=== PATIENT | male | born 1950 | race African-American/Black ===

== ENCOUNTER 2017-04-05 12:58 | Emergency (ER) | payer MEDICARE ==
[2017-04-05] MEDS ORDERED: IV NORMAL SALINE 1000ML BAG 1,000 ML IV SCH (13:06)
[2017-04-05 13:23] LABS: POTASSIUM ISTAT 2.9 mmol/L (3.5-5.0)
[2017-04-05] MEDS ORDERED: IOHEXOL 300 MG/ML 100ML VIAL. IV ONE (13:30)
[2017-04-05] MEDS ORDERED: IV NORMAL SALINE 50ML 50 ML IV ONE (13:30)
[2017-04-05] MEDS ORDERED: ALTEPLASE 5.7 MG IV ONE (13:30)
[2017-04-05] MEDS ORDERED: CONTRAST GIVEN MC PRN (13:30)
[2017-04-05] MEDS ORDERED: ALTEPLASE IV SCH (13:30)
[2017-04-05 13:33] LABS: BASO % 1 % (0-3); EOS % 1 % (0-3); HEMATOCRIT 51.6 % (39.0-53.0); HEMOGLOBIN 16.7 g/dL (13.0-17.5); LYMPH # 1.8 x10^3/uL (1.0-4.8); LYMPH % 28 % (24-48); MEAN CORPUSCULAR HEMOGLOBIN 29 pg (25-35); MEAN CORPUSCULAR HGB CONC 32 g/dL (31-37); MEAN CORPUSCULAR VOLUME 91 fL (79-100); MONO % 9 % (0-9); NEUT % 62 % (31-73); PLATELET COUNT 260 x10^3/uL (140-400); RED CELL DISTRIBUTION WIDTH 13.7 % (11.5-14.5); WHITE BLOOD COUNT 6.6 x10^3/uL (4.0-11.0)
[2017-04-05 13:34] LABS: CALCIUM 9.8 mg/dL (8.5-10.1); CREATININE 1.1 mg/dL (0.7-1.3); GFR 66.6; POTASSIUM 3.1 mmol/L (3.5-5.1)
[2017-04-05 13:39] LABS: ALBUMIN 4.3 g/dL (3.4-5.0); DIRECT BILIRUBIN 0.2 mg/dL (0.0-0.2); TOTAL BILIRUBIN 0.9 mg/dL (0.2-1.0); TOTAL PROTEIN 7.8 g/dL (6.4-8.2)
--- NOTE | 2017-04-05 13:40 | RAD ---
CT of the head without contrast History:FOCAL NEURO, CODE STROKE. Technique: Standard noncontrast images are obtained. Exposure: One or more of the following individualized dose reduction techniques were utilized for this examination: 1. Automated exposure control 2. Adjustment of the mA and/or kV according to patient size 3. Use of iterative reconstruction technique. Comparison: None Findings: There is low parenchymal density in the right frontal, temporal and parietal lobes, and occipital lobe. Findings are compatible with recent infarction. There is increased density within the right middle cerebral artery, compatible with thrombus. There is no evidence of midline shift. No evidence of acute intracranial hemorrhage. No abnormal extra-axial fluid collection. Mild prominence of ventricles and sulci compatible with mild atrophy. The visualized sinuses are clear. Orbits appear unremarkable. No evidence of acute skull abnormality IMPRESSION: Findings are compatible with recent large vessel right cerebral infarction, involving frontal, parietal, occipital and temporal lobe. There is evidence of dense thrombosis in the right middle cerebral artery. FOR INTERNAL CODING PURPOSES Critical result: Findings discussed with Dr. Shah at 04/05/2017 1:35 PM. RESULT CODE: (C) Electronically signed by: Sina Mcqueen MD (04/05/2017 1:37 PM) [id number]
[2017-04-05 13:51] VITALS: BP 146/98
--- NOTE | 2017-04-05 14:19 | EKG ---
[facility] [address] [place] [address] Test Date: 2017-04-05 Test Time: 13:07:57 Pat Name: SCOOTER CARNEY Department: Room: Gender: M Tree Surgeon: : 1950 Requested By: ALFONSO PACHECO Order Number: [id number] Reading MD: Measurements Intervals [place] Rate: 94 P: 56 TX: 166 QRS: -65 QRSD: 106 T: 9 QT: 348 QTc: 441 Interpretive Statements SINUS RHYTHM VENTRICULAR PREMATURE COMPLEX(ES) ABNORMAL LEFT AXIS DEVIATION QRS(T) CONTOUR ABNORMALITY CONSISTENT WITH SEPTAL INFARCT PROBABLY OLD CONSISTENT WITH INFERIOR INFARCT PROBABLY OLD ABNORMAL ECG RI6.01 No previous ECG available for comparison
--- NOTE | 2017-04-05 14:20 | PHYS DOC ---
Past Medical History Past Medical History: CVA, Hypertension Additional Past Surgical Histo: rectal cyst removal Alcohol Use: Occasionally Drug Use: Marijuana Adult General Chief Complaint Chief Complaint: NEURO SYMPTOMS/DEFICITS HPI HPI 67-year-old male presenting to the emergency department today with acute focal weakness of his left upper arm left lower extremity and mild aphasia with facial droop on the left side. His who is here with him today started exactly at 12:00 noon. She seems to be very clear in her understanding of the timeline. He has a history of high blood pressure. He is not on blood thinners other than taking a baby aspirin daily. He denies having a headache. He has mild peripheral vision changes in both eyes. On the left side. He denies fevers chills chest pain shortness of breath. The states that he called her cousin thought something was wrong when she found that he was not able to move his left upper extremity she brought him in to the hospital right away by POV. Upon arrival the patient was awake however had clear focal neurologic deficits. Review of systems is negative for chest pain shortness of breath abdominal pain fevers chills. All other review of systems is negative unless otherwise noted in history of present illness. ED course: 67-year-old male presenting to the emergency department today with acute focal neurologic deficits. He has a history of high blood pressure. Upon arrival the patient is afebrile with mild tachycardia. Otherwise patient's blood pressure is 135/80 upon triage. He is not on blood thinners. Code stroke called immediately. NIH stroke scale calculated to be 12. Neurologic assessment shows the patient to have left-sided hemianopsia. Minor facial palsy on the left. Left upper extremity shows no evidence of effort against gravity. Left lower extremity shows no effort against gravity. Otherwise 5 out of 5 strength in the right upper and lower extremities. Patient has mild aphasia. Patient has mild dysarthria. Patient received head CT along with angiogram of the head and neck. I called the pharmacy at 1316 to call for TPA as the patient seemed to be a good candidate for TPA administration. I discussed the case with the radiologist Dr. Mcqueen who read the head CT as a recent right large vessel cerebral infarction with evidence of dense thrombus in the right middle cerebral artery. I performed an IV TPA screening checklist. The patient meets inclusion criteria and does not meet any exclusion criteria. Immediately after receiving this notification, the patient received intravenous TPA bolus and drip. I then called [facility] our local stroke care center at 1337 and discussed the case with the neurologist on-call who accepted the patient for transfer. The patient was then transferred to higher level stroke center for possible mechanical thrombectomy. Troponin came back as positive. Pt denies cp or shortness of breath. ekg shows sinus tachy with congruent st segments. Review of Systems Review of Systems SEE ABOVE. Current Medications Current Medications Current Medications Medications (Trade) Dose Ordered Sig/Sayra Start Time Stop Time Status Last Admin Dose Admin Alteplase, Recombinant 0 ml @ 0 mls/hr Q1H 04/05/17 13:30 04/05/17 13:31 DC 04/05/17 13:38 51 MLS/HR Info (Do NOT chart on this entry -- for MONITORING) 1 each PRN DAILY PRN 04/05/17 13:30 04/05/17 14:53 DC Iohexol (Omnipaque 300 Mg/ml) 75 ml 1X ONCE 04/05/17 13:30 04/05/17 13:31 DC 04/05/17 13:31 75 ML Sodium Chloride 50 ml @ 0 mls/hr 1X ONCE 04/05/17 13:30 04/05/17 13:31 DC 04/05/17 14:12 51 MLS/HR Allergies Allergies Allergies Coded Allergies Type Severity Reaction Last Updated Verified No Known Drug Allergies 04/05/17 No Physical Exam Physical Exam SEE ABOVE Constitutional: Well developed, well nourished, no acute distress, non-toxic appearance. HENT: Normocephalic, atraumatic, bilateral external ears normal, oropharynx moist, no oral exudates, nose normal. [] Eyes: PERRLA, EOMI, conjunctiva normal, no discharge. [] Neck: Normal range of motion, no tenderness, supple, no stridor. Cardiovascular:Heart rate regular rhythm, no murmur [] Lungs & Thorax: Bilateral breath sounds clear to auscultation Abdomen: Bowel sounds normal, soft, no tenderness, no masses, no pulsatile masses. [] Skin: Warm, dry, no erythema, no rash. [] Back: No tenderness, no CVA tenderness. [] Extremities: No tenderness, no cyanosis, no clubbing, ROM intact, no edema. [] Neurologic: Mental status: Awake oriented and alert x3 Cranial nerves: Extraocular movements intact, eyebrows mackenzie bilaterally and rated mild left-sided facial asymmetry, uvula elevation, shoulder shrug intact, tongue protrusion normal DTRs: 2+ Sensation: Decreased in the left upper and lower extremity. Strength: see above hpi Psychologic: Affect normal, judgement normal, mood normal. [] Current Patient Data Vital Signs Vital Signs Date Time Temp Pulse Resp B/P (MAP) Pulse Ox O2 Delivery O2 Flow Rate FiO2 04/05/17 13:51 86 22 93 04/05/17 12:59 97.5 135/80 (98) Room Air 97.5 Lab Values Laboratory Tests Test 04/05/17 13:05 04/05/17 13:10 04/05/17 13:13 04/05/17 13:14 Glucose (Fingerstick) 118 mg/dL (70-99) H Prothrombin Time 14.4 Sec (10.0-14.0) H 13.0 SEC (11.7-14.0) POC INR 1.2 (0.9-1.1) H White Blood Count 6.6 x10^3/uL (4.0-11.0) Red Blood Count 5.70 x10^6/uL (4.30-5.70) Hemoglobin 16.7 g/dL (13.0-17.5) Hematocrit 51.6 % (39.0-53.0) Mean Corpuscular Volume 91 fL (79-100) Mean Corpuscular Hemoglobin 29 pg (25-35) Mean Corpuscular Hemoglobin Concent 32 g/dL (31-37) Red Cell Distribution Width 13.7 % (11.5-14.5) Platelet Count 260 x10^3/uL (140-400) Neutrophils (%) (Auto) 62 % (31-73) Lymphocytes (%) (Auto) 28 % (24-48) Monocytes (%) (Auto) 9 % (0-9) Eosinophils (%) (Auto) 1 % (0-3) Basophils (%) (Auto) 1 % (0-3) Neutrophils # (Auto) 4.1 x10^3uL (1.8-7.7) Lymphocytes # (Auto) 1.8 x10^3/uL (1.0-4.8) Monocytes # (Auto) 0.6 x10^3/uL (0.0-1.1) Eosinophils # (Auto) 0.1 x10^3/uL (0.0-0.7) Basophils # (Auto) 0.0 x10^3/uL (0.0-0.2) Prothrombin Time INR 1.0 (0.8-1.1) PTT 31 SEC (24-38) Sodium Level 141 mmol/L (136-145) Potassium Level 3.1 mmol/L (3.5-5.1) L Chloride Level 101 mmol/L (98-107) Carbon Dioxide Level 32 mmol/L (21-32) Anion Gap 8 (6-14) Blood Urea Nitrogen 17 mg/dL (8-26) Creatinine 1.1 mg/dL (0.7-1.3) Estimated GFR (Cockcroft-Gault) 66.6 Glucose Level 105 mg/dL (70-99) H Calcium Level 9.8 mg/dL (8.5-10.1) Total Bilirubin 0.9 mg/dL (0.2-1.0) Direct Bilirubin 0.2 mg/dL (0.0-0.2) Aspartate Amino Transferase (AST) 21 U/L (15-37) Alanine Aminotransferase (ALT) 15 U/L (16-63) L Alkaline Phosphatase 95 U/L (46-116) Troponin I Quantitative 0.602 ng/mL (0.000-0.055) Total Protein 7.8 g/dL (6.4-8.2) Albumin 4.3 g/dL (3.4-5.0) Lipase 177 U/L (73-393) POC Troponin I 0.37 ng/ml (<0.08) Test 04/05/17 13:16 POC Hemoglobin 17.3 g/dL (14-18) POC Hematocrit 51 % (37-52) POC Sodium 141 mmol/L (135-145) POC Potassium 2.9 mmol/L (3.5-5.0) L POC Chloride 100 mmol/L (98-110) POC Total CO2 29 mmol/L (23-32) Anion Gap 16 mmol/L (6-14) H POC Blood Urea Nitrogen 18 mg/dL (8-26) POC Creatinine 1.1 mg/dL (0.5-1.4) Glucose Level 101 mg/dL (70-99) H POC Ionized Calcium (Temo) 1.12 mmol/L (1.13-1.32) L Laboratory Tests 04/05/17 13:13 Laboratory Tests 04/05/17 13:13 04/05/17 13:16 EKG EKG [] Radiology/Procedures Radiology/Procedures [] Course & Med Decision Making Course & Med Decision Making Pertinent Labs and Imaging studies reviewed. (See chart for details) [] Dragon Disclaimer Dragon Disclaimer This electronic medical record was generated, in whole or in part, using a voice recognition dictation system. Departure Departure Impression: Primary Impression: Acute ischemic stroke Additional Impression: Acute ischemic right MCA stroke Disposition: 02 TRANSFER [facility] Admitting Physician: Other (dr. priest accepting) Condition: STABLE Referrals: SOL LAND MD (PCP) Critical Care Time Critical care time was 45 minutes exclusive of procedures. Time was spent evaluating the patient, ordering the administration of medications, discussing with the radiologist and transferring doctors, and documenting. Problem Qualifiers ALFONSO PACHECO MD Apr 05, 2017 14:20
--- NOTE | 2017-04-05 14:23 | RAD ---
CTA head and neck History: Altered mental status, code stroke, left-sided weakness Technique: After bolus of intravenous contrast, volumetric CT data acquisition was acquired of the head and neck. Multiplanar reconstruction images to include MIP and 3-D reconstruction images are submitted. Exposure: One or more of the following individualized dose reduction techniques were utilized for this examination: 1. Automated exposure control 2. Adjustment of the mA and/or kV according to patient size 3. Use of iterative reconstruction technique. Contrast: 75 cc Omnipaque 300 Comparison: Noncontrast CT head the same day Any determination of stenosis is based on NASCET criteria. CTA head: Findings: There is motion degradation. At site of abnormal increased density on head CT, there is filling defect of the right middle cerebral artery distal M1 segment near the M1 M2 junction. Only the very proximal right intradural vertebral artery is visualized, not does not contribute to the basilar artery. Left vertebral artery supplies the basilar artery. There is visualization of segments of bilateral superior cerebellar arteries. There is visualization of segments bilateral PICAs and also right AICA. Left AICA is not well visualized. There is fairly prominent right posterior communicating artery, not seen on the left. There is visualization of the internal carotid arteries bilaterally at the skull base. There is atherosclerotic calcification of the carotid siphons bilaterally. There is visualization of segments of the anterior, middle, posterior cerebral arteries bilaterally. However left posterior cerebral artery is not visualized beyond the proximal P2 segment. There is multifocal wall irregularity of the middle and posterior cerebral arteries. There is small patent anterior communicating artery. There is variable wall irregularity and stenoses of the basilar artery, maximal luminal diameter reduction less than 50%. Impression: 1. There is filling defect compatible with thromboembolism of the right middle cerebral artery at the distal M1 segment near the M1 2 junction. 2. There is multifocal wall irregularity of the intracranial vasculature with variable narrowing greatest of the basilar artery, also nonvisualization of left posterior cerebral artery beyond the proximal P2 segment. The findings may be due to intracranial atherosclerotic disease unless clinical suspicion for vasculitis. Neck CTA: Findings: There is shared origin of the brachiocephalic and left common carotid arteries. There is calcified plaque of the proximal internal carotid arteries bilaterally without significant focal stenosis. There is tortuosity of the more distal cervical internal carotid arteries bilaterally greater on the left, some medial deviation of the carotid arteries in the neck bilaterally. Left vertebral artery is dominant. The right vertebral artery is small in caliber, not seen beyond the proximal right intradural segment. No dissection flap is identified of the cervical arterial vasculature. There is multilevel advanced cervical degenerative disc disease. There is multilevel spondylosis. There is multilevel cervical facet degenerative change. There is emphysema of the visualized lung apices. There is mucous retention cyst right maxillary sinus 1.2 cm. Impression: 1. There is no significant stenosis of the cervical arterial vasculature. 2. Right vertebral artery is hypoplastic, not seen beyond the proximal intradural segment. FOR INTERNAL CODING PURPOSES Critical result: Findings discussed with Dr. Shah at 04/05/2017 2:07 PM. RESULT CODE: (C) Electronically signed by: Humberto Moran MD (04/05/2017 2:19 PM) [id number]
[2017-04-05 14:31] LABS: ISTAT INR 1.2 (0.9-1.1); ISTAT PT 14.4 Sec (10.0-14.0)
== END 2017-04-05 14:12 | disposition short-term general hospital (02) ==
LOC: ER 12:58
DX: I63.9 Cerebral infarction, unspecified (principal); I63.411 Cerebral infarction due to embolism of right middle cerebral artery; I10 Essential (primary) hypertension; F12.10 Cannabis abuse, uncomplicated
CPT/HCPCS: 36415; 37195; 70450; 70496; 70498; 80047; 80048; 80076; 82962; 83690; 84484; 85025; 85610; 85730; 93005; 99291; J2997; Q9967

== ENCOUNTER 2017-05-25 06:03 | Emergency (ER) | payer MEDICARE ==
[2017-05-25] MEDS ORDERED: IPRATRPIUM/ALBUTEROL 0.5/2.5MG 3 ML NEBU. (06:23)
[2017-05-25] MEDS: IPRATRPIUM/ALBUTEROL 0.5/2.5MG 3 ML NEBU. NEB ×2 (06:28→06:29)
[2017-05-25 06:55] LABS: ADD MAN DIFF? NO
[2017-05-25] MEDS: IV NORMAL SALINE 1000ML BAG 1,000 ML IV (07:04)
[2017-05-25 07:09] LABS: ANION GAP 11 (6-14); BLOOD UREA NITROGEN 24 mg/dL (8-26); BUN/CREATININE RATIO 48 (6-20); CALCIUM 8.8 mg/dL (8.5-10.1); CARBON DIOXIDE 27 mmol/L (21-32); CHLORIDE 101 mmol/L (98-107); CREATININE 0.5 mg/dL (0.7-1.3); GFR 200.1; GLUCOSE 119 mg/dL (70-99); POTASSIUM 4.6 mmol/L (3.5-5.1); SODIUM 139 mmol/L (136-145)
[2017-05-25 07:15] LABS: ALBUMIN 2.1 g/dL (3.4-5.0); ALBUMIN/GLOBULIN RATIO 0.5 (1.0-1.7); ALK PHOS 83 U/L (46-116); ALT (SGPT) 69 U/L (16-63); AST (SGOT) 26 U/L (15-37); TOTAL BILIRUBIN 0.3 mg/dL (0.2-1.0); TOTAL PROTEIN 6.2 g/dL (6.4-8.2)
[2017-05-25 07:17] LABS: LACTIC ACID 1.2 mmol/L (0.4-2.0); TROPONINI < 0.017 ng/mL (0.000-0.055)
[2017-05-25 07:24] LABS: INFLUENZA A PATIENT NEGATIVE (NEGATIVE); INFLUENZA B PATIENT NEGATIVE (NEGATIVE); OBC FLU VALID
[2017-05-25 07:28] LABS: BILIRUBIN,URINE NEGATIVE (NEG); CLARITY,URINE CLOUDY; COLOR,URINE AMBER; GLUCOSE,URINE NEGATIVE (NEG); NITRITE,URINE NEGATIVE (NEG); PH,URINE 5.5; PROTEIN,URINE 30 mg/dL (NEG-TRACE)
[2017-05-25 07:35] LABS: WBC,URINE OCC /HPF (0-4)
[2017-05-25 07:36] LABS: BACTERIA,URINE MODERATE /HPF (0-FEW)
[2017-05-25 07:51] LABS: BASO # 0.2 x10^3/uL (0.0-0.2); BASO % 2 % (0-3); EOS # 0.2 x10^3/uL (0.0-0.7); EOS % 2 % (0-3); HEMATOCRIT 35.8 % (39.0-53.0); HEMOGLOBIN 11.3 g/dL (13.0-17.5); LYMPH # 1.3 x10^3/uL (1.0-4.8); LYMPH % 12 % (24-48); MEAN CORPUSCULAR HEMOGLOBIN 28 pg (25-35); MEAN CORPUSCULAR HGB CONC 32 g/dL (31-37); MEAN CORPUSCULAR VOLUME 88 fL (79-100); MONO # 0.7 x10^3/uL (0.0-1.1); MONO % 6 % (0-9); NEUT % 79 % (31-73); PLATELET COUNT 381 x10^3/uL (140-400); RED BLOOD COUNT 4.08 x10^6/uL (4.30-5.70); RED CELL DISTRIBUTION WIDTH 16.7 % (11.5-14.5); WHITE BLOOD COUNT 11.4 x10^3/uL (4.0-11.0)
== END 2017-05-25 09:00 | disposition home or self-care (01) ==
LOC: ER 06:03
DX: R06.02 Shortness of breath (principal); Z93.0 Tracheostomy status; J44.9 Chronic obstructive pulmonary disease, unspecified; I10 Essential (primary) hypertension; E78.00 Pure hypercholesterolemia, unspecified; F12.10 Cannabis abuse, uncomplicated; Z86.73 Personal history of transient ischemic attack (TIA), and cerebral infarction without residual deficits
CPT/HCPCS: 31720; 36415; 71045; 80053; 81001; 83605; 84484; 85025; 87040; 87070; 87086; 87186; 87205; 87804; 87804-59; 93005; 94640; 96361; 96365; 99291-25; J0690; J7030; J7620

== ENCOUNTER 2017-06-05 05:31 | Emergency (ER) | payer MEDICARE ==
[2017-06-05] MEDS ORDERED: CONTRAST GIVEN MC (06:15)
[2017-06-05] MEDS ORDERED: IOHEXOL 240 MG/ML 50ML VIAL. PO (06:30)
== END 2017-06-05 06:35 | disposition home or self-care (01) ==
LOC: ER 05:31
DX: K94.23 Gastrostomy malfunction (principal); E78.00 Pure hypercholesterolemia, unspecified; E11.9 Type 2 diabetes mellitus without complications; K21.9 Gastro-esophageal reflux disease without esophagitis; N40.0 Benign prostatic hyperplasia without lower urinary tract symptoms; J44.9 Chronic obstructive pulmonary disease, unspecified; E78.5 Hyperlipidemia, unspecified; Z93.0 Tracheostomy status; Z90.3 Acquired absence of stomach [part of]; F12.10 Cannabis abuse, uncomplicated
CPT/HCPCS: 74018; 99283

== ENCOUNTER 2017-07-01 05:49 | Emergency (ER) | payer MEDICARE ==
[2017-07-01 06:39] LABS: ADD MAN DIFF? NO
[2017-07-01 06:43] LABS: BASO % 1 % (0-3); EOS # 0.2 x10^3/uL (0.0-0.7); EOS % 2 % (0-3); HEMATOCRIT 29.9 % (39.0-53.0); HEMOGLOBIN 9.8 g/dL (13.0-17.5); LYMPH # 1.3 x10^3/uL (1.0-4.8); LYMPH % 14 % (24-48); MEAN CORPUSCULAR HEMOGLOBIN 26 pg (25-35); MEAN CORPUSCULAR HGB CONC 33 g/dL (31-37); MEAN CORPUSCULAR VOLUME 80 fL (79-100); MONO # 1.1 x10^3/uL (0.0-1.1); MONO % 12 % (0-9); NEUT # 6.5 x10^3uL (1.8-7.7); NEUT % 71 % (31-73); PLATELET COUNT 538 x10^3/uL (140-400); RED BLOOD COUNT 3.76 x10^6/uL (4.30-5.70); RED CELL DISTRIBUTION WIDTH 17.9 % (11.5-14.5); WHITE BLOOD COUNT 9.2 x10^3/uL (4.0-11.0)
[2017-07-01 07:00] LABS: LACTIC ACID 1.3 mmol/L (0.4-2.0)
[2017-07-01 07:28] LABS: ANION GAP 10 (6-14); BLOOD UREA NITROGEN 12 mg/dL (8-26); BUN/CREATININE RATIO 30 (6-20); CALCIUM 9.1 mg/dL (8.5-10.1); CARBON DIOXIDE 26 mmol/L (21-32); CHLORIDE 94 mmol/L (98-107); CREATININE 0.4 mg/dL (0.7-1.3); GFR 258.8; GLUCOSE 115 mg/dL (70-99); POTASSIUM 4.1 mmol/L (3.5-5.1); SODIUM 130 mmol/L (136-145)
[2017-07-01 07:29] LABS: ALBUMIN 1.8 g/dL (3.4-5.0); ALBUMIN/GLOBULIN RATIO 0.4 (1.0-1.7); ALK PHOS 94 U/L (46-116); ALT (SGPT) 58 U/L (16-63); AST (SGOT) 27 U/L (15-37); C-REACTIVE PROTEIN 143.8 mg/L (0-3.3); TOTAL BILIRUBIN 0.3 mg/dL (0.2-1.0); TOTAL PROTEIN 6.9 g/dL (6.4-8.2)
[2017-07-01] MEDS ORDERED: CONTRAST GIVEN MC ×2 (07:45)
[2017-07-01] MEDS: IOHEXOL 300 MG/ML 100ML VIAL. IV ×2 (07:45)
== END 2017-07-01 11:25 | disposition short-term general hospital (02) ==
LOC: ER 05:49
DX: J95.03 Malfunction of tracheostomy stoma (principal); E78.00 Pure hypercholesterolemia, unspecified; I10 Essential (primary) hypertension; J44.9 Chronic obstructive pulmonary disease, unspecified; Z86.73 Personal history of transient ischemic attack (TIA), and cerebral infarction without residual deficits; F12.10 Cannabis abuse, uncomplicated
CPT/HCPCS: 36415; 70491; 71045; 80053; 83605; 85025; 86140; 87040; 99285-25; Q9967

== ENCOUNTER 2017-07-28 17:26 | Emergency (ER) | payer MEDICARE | END 2017-07-28 20:13 | LOC: ER 20:13 | DX: J95.01 Hemorrhage from tracheostomy stoma (principal); E78.00 Pure hypercholesterolemia, unspecified; J44.9 Chronic obstructive pulmonary disease, unspecified; I10 Essential (primary) hypertension; Z86.73 Personal history of transient ischemic attack (TIA), and cerebral infarction without residual deficits; F12.10 Cannabis abuse, uncomplicated; Z87.09 Personal history of other diseases of the respiratory system | CPT/HCPCS: 71045; 99284 ==

== ENCOUNTER 2017-07-30 08:37 | Inpatient (IN) | payer MEDICARE ==
[2017-07-30] MEDS: ACETAMINOPHEN 650 MG SUPP.RECT. PR (09:14)
[2017-07-30] MEDS: IV NORMAL SALINE 1000ML BAG 1,000 ML IV ×9 (09:32→19:50)
[2017-07-30] MEDS ORDERED: ONDANSETRON PF 4 MG/2 ML VIAL. IV (09:45)
[2017-07-30] MEDS ORDERED: VANCOMYCIN 1GM IVPB FOR OMNI 250 ML IV (09:45)
[2017-07-30 09:52] LABS: BILIRUBIN,URINE NEGATIVE (NEG); CLARITY,URINE CLOUDY; COLOR,URINE AMBER; GLUCOSE,URINE NEGATIVE (NEG); NITRITE,URINE NEGATIVE (NEG); PROTEIN,URINE 100 mg/dL (NEG-TRACE)
[2017-07-30 10:04] LABS: BACTERIA,URINE FEW /HPF (0-FEW); SQUAMOUS EPITHELIAL CELL,UR MANY /LPF
[2017-07-30] MEDS: VANCOMYCIN 1.5 GM in IV DEXTROSE 5 %-0.2 % NACL 500 ML IV (10:08)
[2017-07-30] MEDS: PIPERACILLIN/TAZOBACTAM 4.5 GM in IV NORMAL SALINE 100ML 100 ML IV (10:08)
[2017-07-30 10:13] LABS: INFLUENZA A PATIENT NEGATIVE (NEGATIVE); INFLUENZA B PATIENT NEGATIVE (NEGATIVE); OBC FLU VALID
[2017-07-30 10:17] LABS: BASO # 0.1 x10^3/uL (0.0-0.2); BASO % 0 % (0-3); EOS # 0.1 x10^3/uL (0.0-0.7); EOS % 0 % (0-3); HEMATOCRIT 31.2 % (39.0-53.0); HEMOGLOBIN 9.8 g/dL (13.0-17.5); LYMPH # 0.8 x10^3/uL (1.0-4.8); LYMPH % 6 % (24-48); MEAN CORPUSCULAR HEMOGLOBIN 25 pg (25-35); MEAN CORPUSCULAR HGB CONC 31 g/dL (31-37); MEAN CORPUSCULAR VOLUME 79 fL (79-100); MONO # 1.2 x10^3/uL (0.0-1.1); MONO % 8 % (0-9); NEUT # 13.2 x10^3uL (1.8-7.7); NEUT % 86 % (31-73); PLATELET COUNT 418 x10^3/uL (140-400); RED BLOOD COUNT 3.96 x10^6/uL (4.30-5.70); RED CELL DISTRIBUTION WIDTH 19.7 % (11.5-14.5); WHITE BLOOD COUNT 15.4 x10^3/uL (4.0-11.0)
[2017-07-30 10:20] LABS: ADD MAN DIFF? YES
[2017-07-30 10:26] LABS: PARTIAL THROMBOPLASTIN TIME 31 SEC (24-38)
[2017-07-30 10:29] LABS: ANION GAP 11 (6-14); BLOOD UREA NITROGEN 18 mg/dL (8-26); CARBON DIOXIDE 24 mmol/L (21-32); CHLORIDE 98 mmol/L (98-107); CREATININE 0.5 mg/dL (0.7-1.3); GFR 200.1; GLUCOSE 123 mg/dL (70-99); POTASSIUM 4.8 mmol/L (3.5-5.1); SODIUM 133 mmol/L (136-145)
[2017-07-30 10:37] LABS: TROPONINI < 0.017 ng/mL (0.000-0.055)
[2017-07-30 11:26] LABS: % BANDS 1 % (0-9); % LYMPHS 8 % (24-48); % MONOS 1 % (0-10); % SEGS 90 % (35-66); PLT ESTIMATE ADEQUATE (ADEQUATE)
[2017-07-30 12:43] LABS: LACTIC ACID 0.9 mmol/L (0.4-2.0)
[2017-07-30 12:50] LABS: TROPONINI < 0.017 ng/mL (0.000-0.055)
[2017-07-30 16:13] LABS: TROPONINI < 0.017 ng/mL (0.000-0.055)
[2017-07-30 16:14] LABS: LACTIC ACID 1.1 mmol/L (0.4-2.0)
[2017-07-30 18:41] LABS: ANION GAP 12 (6-14); BLOOD UREA NITROGEN 14 mg/dL (8-26); BUN/CREATININE RATIO 35 (6-20); CALCIUM 6.2 mg/dL (8.5-10.1); CARBON DIOXIDE 19 mmol/L (21-32); CHLORIDE 109 mmol/L (98-107); CREATININE 0.4 mg/dL (0.7-1.3); GFR 258.8; GLUCOSE 112 mg/dL (70-99); POTASSIUM 3.2 mmol/L (3.5-5.1); SODIUM 140 mmol/L (136-145)
[2017-07-30 18:47] LABS: ALBUMIN 1.4 g/dL (3.4-5.0); ALBUMIN/GLOBULIN RATIO 0.5 (1.0-1.7); ALK PHOS 53 U/L (46-116); ALT (SGPT) 16 U/L (16-63); AST (SGOT) 11 U/L (15-37); TOTAL BILIRUBIN 0.7 mg/dL (0.2-1.0); TOTAL PROTEIN 4.3 g/dL (6.4-8.2)
[2017-07-30 23:07] LABS: C DIFF BY PCR Negative (Negative)
[2017-07-31] MEDS: IV NORMAL SALINE 1000ML BAG 1,000 ML IV (00:52)
[2017-07-31 06:00] LABS: HEMATOCRIT 25.4 % (39.0-53.0); MEAN CORPUSCULAR HEMOGLOBIN 25 pg (25-35); MEAN CORPUSCULAR HGB CONC 32 g/dL (31-37); MEAN CORPUSCULAR VOLUME 78 fL (79-100); PLATELET COUNT 380 x10^3/uL (140-400); RED BLOOD COUNT 3.27 x10^6/uL (4.30-5.70); WHITE BLOOD COUNT 12.3 x10^3/uL (4.0-11.0)
[2017-07-31 06:27] LABS: ALBUMIN 1.6 g/dL (3.4-5.0); ALBUMIN/GLOBULIN RATIO 0.4 (1.0-1.7); ALK PHOS 63 U/L (46-116); ALT (SGPT) 18 U/L (16-63); ANION GAP 7 (6-14); AST (SGOT) 12 U/L (15-37); BLOOD UREA NITROGEN 16 mg/dL (8-26); BUN/CREATININE RATIO 32 (6-20); CALCIUM 8.1 mg/dL (8.5-10.1); CARBON DIOXIDE 26 mmol/L (21-32); CHLORIDE 103 mmol/L (98-107); CREATININE 0.5 mg/dL (0.7-1.3); GFR 200.1; GLUCOSE 133 mg/dL (70-99); POTASSIUM 4.1 mmol/L (3.5-5.1); SODIUM 136 mmol/L (136-145); TOTAL BILIRUBIN 0.4 mg/dL (0.2-1.0); TOTAL PROTEIN 5.7 g/dL (6.4-8.2)
[2017-07-31] MEDS ORDERED: PIP/TAZO PER PHARMACY MC (08:45)
[2017-07-31] MEDS ORDERED: NON FORMULARY ITEM (Modafinil 100 MG) PO (09:00)
[2017-07-31] MEDS ORDERED: NON FORMULARY ITEM (Glucagon,Human Recombinant (Glucagon Emergency Kit) 1 MG) IM (09:00)
[2017-07-31] MEDS ORDERED: DEXTROSE ORAL GEL 15 GM TUBE. PO (09:00)
[2017-07-31] MEDS ORDERED: DEXTROSE 50% 25 GM / 50ML DISP.SYRIN. IV (09:15)
[2017-07-31] MEDS: BUDESONIDE 0.5 MG/2 ML NEBU. NEB ×2 (09:15→20:11)
[2017-07-31] MEDS: ALBUTEROL SULFATE 2.5 MG/3 ML NEBU. NEB (09:15)
[2017-07-31] MEDS: methylPREDNISolone SOD SUCC PF 40 MG/ML VIAL. IV ×3 (09:21→21:31)
[2017-07-31] MEDS: PIPERACILLIN/TAZOBACTAM 3.375 GM in IV NORMAL SALINE 100ML 100 ML IV ×3 (10:34→18:28)
[2017-07-31 11:45] LABS: BASE EXCESS ABG 2 mmol/L (-3-3); HCO3 ABG 26 mmol/L (21-28); PCO2 ABG 37 mmHg (35-46); PH ABG 7.46 (7.35-7.45); PO2 ABG 56 mmHg (65-108); SAT O2 ABG 88 % (92-99)
[2017-07-31] MEDS: IPRATRPIUM/ALBUTEROL 0.5/2.5MG 3 ML NEBU. NEB ×3 (11:52→20:11)
[2017-07-31] MEDS: INSULIN ASPART 300 UNITS/3 ML INSULN.PEN SQ ×2 (12:00→18:48)
[2017-07-31] MEDS: amLODIPine BESYLATE 5 MG TABLET PO (12:07)
[2017-07-31] MEDS: LANSOPRAZOLE 30 MG TAB.RAP.DR PO ×2 (12:07→18:27)
[2017-07-31] MEDS: SENNOSIDES 8.6 MG TABLET PO (12:07)
[2017-07-31] MEDS: VANCOMYCIN 1.5 GM in IV DEXTROSE 5 %-0.2 % NACL 500 ML IV (12:07)
[2017-07-31] MEDS: ASPIRIN ENTERIC COATED 81 MG TABLET.DR. PO (12:07)
[2017-07-31] MEDS: ASCORBIC ACID 500 MG TABLET PO (12:07)
[2017-07-31] MEDS: VANCOMYCIN PER PHARMACY MC (12:12)
[2017-07-31] MEDS: CARVEDILOL 12.5 MG TABLET. PO ×2 (12:29→17:00)
[2017-07-31] MEDS: CHLORHEXIDINE 0.12% 15 ML MOUTHWASH. SWSP ×4 (12:30→21:27)
[2017-07-31] MEDS: SCOPOLAMINE 1.5MG PATCH. TD (12:30)
[2017-07-31 14:06] LABS: POC GLUCOSE 207 mg/dL (70-99)
[2017-07-31 15:18] LABS: SEDIMENTATION RATE 96 (0-15)
[2017-07-31 17:10] LABS: MRSA BY PCR Positive (Negative)
[2017-07-31 19:02] LABS: POC GLUCOSE 151 mg/dL (70-99)
[2017-07-31] MEDS: TERAZOSIN 1 MG CAPSULE. PO (21:00)
[2017-08-01] MEDS: VANCOMYCIN 1 GM in IV DEXTROSE 5 %-0.2 % NACL 250 ML IV ×2 (00:21→13:40)
[2017-08-01] MEDS: PIPERACILLIN/TAZOBACTAM 3.375 GM in IV NORMAL SALINE 100ML 100 ML IV ×5 (00:21→23:54)
[2017-08-01 01:53] LABS: POC GLUCOSE 152 mg/dL (70-99)
[2017-08-01] MEDS: methylPREDNISolone SOD SUCC PF 40 MG/ML VIAL. IV ×3 (06:07→21:26)
[2017-08-01 06:11] LABS: HEMATOCRIT 26.2 % (39.0-53.0); HEMOGLOBIN 8.1 g/dL (13.0-17.5); MEAN CORPUSCULAR HEMOGLOBIN 24 pg (25-35); MEAN CORPUSCULAR HGB CONC 31 g/dL (31-37); MEAN CORPUSCULAR VOLUME 79 fL (79-100); PLATELET COUNT 346 x10^3/uL (140-400); RED BLOOD COUNT 3.34 x10^6/uL (4.30-5.70); WHITE BLOOD COUNT 13.4 x10^3/uL (4.0-11.0)
[2017-08-01 06:25] LABS: POC GLUCOSE 130 mg/dL (70-99)
[2017-08-01 06:33] LABS: ALBUMIN 1.7 g/dL (3.4-5.0); ALBUMIN/GLOBULIN RATIO 0.4 (1.0-1.7); ALK PHOS 65 U/L (46-116); ALT (SGPT) 23 U/L (16-63); ANION GAP 7 (6-14); AST (SGOT) 22 U/L (15-37); BLOOD UREA NITROGEN 15 mg/dL (8-26); BUN/CREATININE RATIO 30 (6-20); CALCIUM 8.8 mg/dL (8.5-10.1); CARBON DIOXIDE 27 mmol/L (21-32); CHLORIDE 103 mmol/L (98-107); CREATININE 0.5 mg/dL (0.7-1.3); GFR 200.1; GLUCOSE 133 mg/dL (70-99); POTASSIUM 3.7 mmol/L (3.5-5.1); SODIUM 137 mmol/L (136-145); TOTAL BILIRUBIN 0.3 mg/dL (0.2-1.0); TOTAL PROTEIN 6.2 g/dL (6.4-8.2)
[2017-08-01] MEDS: INSULIN ASPART 300 UNITS/3 ML INSULN.PEN SQ ×3 (08:00→17:00)
[2017-08-01] MEDS: IV RINGERS,LACTATED 1000ML 1,000 ML IV (08:00)
[2017-08-01] MEDS: ASCORBIC ACID 500 MG TABLET PO (08:17)
[2017-08-01] MEDS: amLODIPine BESYLATE 5 MG TABLET PO (08:18)
[2017-08-01] MEDS: ASPIRIN ENTERIC COATED 81 MG TABLET.DR. PO (08:19)
[2017-08-01] MEDS: CARVEDILOL 12.5 MG TABLET. PO ×2 (08:19→17:00)
[2017-08-01] MEDS: LANSOPRAZOLE 30 MG TAB.RAP.DR PO ×2 (08:19→16:19)
[2017-08-01] MEDS: CHLORHEXIDINE 0.12% 15 ML MOUTHWASH. SWSP ×4 (08:20→21:26)
[2017-08-01] MEDS ORDERED: fentaNYL PF VIAL 100 MCG/2 ML VIAL IV ×2 (08:45)
[2017-08-01] MEDS ORDERED: PROCHLORPERAZINE 10 MG/2 ML VIAL. IV (08:45)
[2017-08-01] MEDS ORDERED: ONDANSETRON PF 4 MG/2 ML VIAL. IV (08:45)
[2017-08-01] MEDS ORDERED: LIDOCAINE 1% PF 2 ML VIAL. ID (08:45)
[2017-08-01] MEDS ORDERED: MORPHINE SULFATE 4 MG/ML DISP.SYRIN. IV (08:45)
[2017-08-01] MEDS: IPRATRPIUM/ALBUTEROL 0.5/2.5MG 3 ML NEBU. NEB ×4 (08:56→20:20)
[2017-08-01] MEDS: BUDESONIDE 0.5 MG/2 ML NEBU. NEB ×2 (08:56→20:20)
[2017-08-01] MEDS ORDERED: DEXAMETHASONE SOD PHOS 20 MG/5 ML VIAL. (08:58)
[2017-08-01] MEDS ORDERED: PROPOFOL 0 ML IV (08:58)
[2017-08-01] MEDS ORDERED: ONDANSETRON PF 4 MG/2 ML VIAL. (08:58)
[2017-08-01] MEDS ORDERED: ROCURONIUM 50 MG/5 ML VIAL. (08:59)
[2017-08-01] MEDS: ENOXAPARIN 40 MG/0.4 ML SYRINGE. SQ (09:00)
[2017-08-01 18:14] LABS: POC GLUCOSE 145 mg/dL (70-99)
[2017-08-01] MEDS: TERAZOSIN 1 MG CAPSULE. PO (21:26)
[2017-08-01 23:54] LABS: VANC TR 11.7 mcg/mL (10.0-20.0)
[2017-08-02 00:10] LABS: POC GLUCOSE 148 mg/dL (70-99)
[2017-08-02] MEDS: VANCOMYCIN 1 GM in IV DEXTROSE 5 %-0.2 % NACL 250 ML IV (00:29)
[2017-08-02] MEDS: VANCOMYCIN PER PHARMACY MC ×2 (02:43→10:16)
[2017-08-02 05:56] LABS: ALBUMIN 1.7 g/dL (3.4-5.0); ALBUMIN/GLOBULIN RATIO 0.4 (1.0-1.7); ALK PHOS 67 U/L (46-116); ALT (SGPT) 38 U/L (16-63); ANION GAP 6 (6-14); AST (SGOT) 19 U/L (15-37); BLOOD UREA NITROGEN 19 mg/dL (8-26); BUN/CREATININE RATIO 38 (6-20); CALCIUM 8.5 mg/dL (8.5-10.1); CARBON DIOXIDE 27 mmol/L (21-32); CHLORIDE 105 mmol/L (98-107); CREATININE 0.5 mg/dL (0.7-1.3); GFR 200.1; GLUCOSE 152 mg/dL (70-99); SODIUM 138 mmol/L (136-145); TOTAL BILIRUBIN 0.2 mg/dL (0.2-1.0); TOTAL PROTEIN 5.9 g/dL (6.4-8.2)
[2017-08-02 06:22] LABS: HEMATOCRIT 25.1 % (39.0-53.0); HEMOGLOBIN 7.9 g/dL (13.0-17.5); MEAN CORPUSCULAR HEMOGLOBIN 25 pg (25-35); MEAN CORPUSCULAR HGB CONC 31 g/dL (31-37); MEAN CORPUSCULAR VOLUME 78 fL (79-100); PLATELET COUNT 436 x10^3/uL (140-400); RED BLOOD COUNT 3.21 x10^6/uL (4.30-5.70); WHITE BLOOD COUNT 12.5 x10^3/uL (4.0-11.0)
[2017-08-02] MEDS: methylPREDNISolone SOD SUCC PF 40 MG/ML VIAL. IV ×2 (06:25→17:59)
[2017-08-02] MEDS: PIPERACILLIN/TAZOBACTAM 3.375 GM in IV NORMAL SALINE 100ML 100 ML IV ×4 (06:25→22:55)
[2017-08-02 06:41] LABS: POC GLUCOSE 140 mg/dL (70-99)
[2017-08-02] MEDS: INSULIN ASPART 300 UNITS/3 ML INSULN.PEN SQ ×3 (08:00→17:00)
[2017-08-02 08:17] LABS: POC GLUCOSE 131 mg/dL (70-99)
[2017-08-02] MEDS: CHLORHEXIDINE 0.12% 15 ML MOUTHWASH. SWSP ×3 (08:46→16:03)
[2017-08-02] MEDS: LANSOPRAZOLE 30 MG TAB.RAP.DR PO ×2 (08:46→16:30)
[2017-08-02] MEDS: amLODIPine BESYLATE 5 MG TABLET PO (08:46)
[2017-08-02] MEDS: ENOXAPARIN 40 MG/0.4 ML SYRINGE. SQ (08:47)
[2017-08-02] MEDS: ASPIRIN ENTERIC COATED 81 MG TABLET.DR. PO (08:47)
[2017-08-02] MEDS: CARVEDILOL 12.5 MG TABLET. PO ×2 (08:47→18:00)
[2017-08-02] MEDS: ASCORBIC ACID 500 MG TABLET PO (09:00)
[2017-08-02] MEDS: BUDESONIDE 0.5 MG/2 ML NEBU. NEB ×2 (09:26→20:06)
[2017-08-02] MEDS: IPRATRPIUM/ALBUTEROL 0.5/2.5MG 3 ML NEBU. NEB ×4 (09:26→20:06)
[2017-08-02 12:41] LABS: POC GLUCOSE 136 mg/dL (70-99)
[2017-08-02] MEDS: VANCOMYCIN 1.25 GM in IV DEXTROSE 5 %-0.2 % NACL 250 ML IV ×2 (13:08→22:56)
[2017-08-02] MEDS: ACETAMINOPHEN 325 MG TABLET. PO (17:59)
[2017-08-02 18:17] LABS: POC GLUCOSE 129 mg/dL (70-99)
[2017-08-02] MEDS: TERAZOSIN 1 MG CAPSULE. PO (20:42)
[2017-08-03 00:16] LABS: POC GLUCOSE 164 mg/dL (70-99)
[2017-08-03] MEDS: PIPERACILLIN/TAZOBACTAM 3.375 GM in IV NORMAL SALINE 100ML 100 ML IV ×4 (05:13→23:23)
[2017-08-03] MEDS: methylPREDNISolone SOD SUCC PF 40 MG/ML VIAL. IV ×2 (05:19→17:43)
[2017-08-03 05:55] LABS: POC GLUCOSE 132 mg/dL (70-99)
[2017-08-03 06:35] LABS: HEMATOCRIT 24.7 % (39.0-53.0); HEMOGLOBIN 8.1 g/dL (13.0-17.5); MEAN CORPUSCULAR HEMOGLOBIN 26 pg (25-35); MEAN CORPUSCULAR HGB CONC 33 g/dL (31-37); MEAN CORPUSCULAR VOLUME 78 fL (79-100); PLATELET COUNT 461 x10^3/uL (140-400); RED BLOOD COUNT 3.16 x10^6/uL (4.30-5.70); RED CELL DISTRIBUTION WIDTH 19.2 % (11.5-14.5)
[2017-08-03 06:57] LABS: ALBUMIN 1.8 g/dL (3.4-5.0); ALBUMIN/GLOBULIN RATIO 0.4 (1.0-1.7); ALK PHOS 63 U/L (46-116); ALT (SGPT) 42 U/L (16-63); ANION GAP 9 (6-14); AST (SGOT) 15 U/L (15-37); BLOOD UREA NITROGEN 18 mg/dL (8-26); BUN/CREATININE RATIO 30 (6-20); CALCIUM 8.2 mg/dL (8.5-10.1); CARBON DIOXIDE 28 mmol/L (21-32); CHLORIDE 103 mmol/L (98-107); CREATININE 0.6 mg/dL (0.7-1.3); GFR 162.1; GLUCOSE 133 mg/dL (70-99); POTASSIUM 3.5 mmol/L (3.5-5.1); SODIUM 140 mmol/L (136-145); TOTAL BILIRUBIN 0.3 mg/dL (0.2-1.0)
[2017-08-03] MEDS: BUDESONIDE 0.5 MG/2 ML NEBU. NEB ×2 (07:32→20:25)
[2017-08-03] MEDS: IPRATRPIUM/ALBUTEROL 0.5/2.5MG 3 ML NEBU. NEB ×4 (07:32→20:25)
[2017-08-03] MEDS: INSULIN ASPART 300 UNITS/3 ML INSULN.PEN SQ ×3 (08:00→17:00)
[2017-08-03] MEDS: ENOXAPARIN 40 MG/0.4 ML SYRINGE. SQ (09:50)
[2017-08-03] MEDS: SCOPOLAMINE 1.5MG PATCH. TD (09:50)
[2017-08-03] MEDS: ASCORBIC ACID 500 MG TABLET PO (09:50)
[2017-08-03] MEDS: MULTIVITAMINS,THERAPEUTIC 5 ML ORAL LIQUID. PEG (09:51)
[2017-08-03] MEDS: amLODIPine BESYLATE 5 MG TABLET PO (09:51)
[2017-08-03] MEDS: ASPIRIN ENTERIC COATED 81 MG TABLET.DR. PO (09:51)
[2017-08-03] MEDS: LANSOPRAZOLE 30 MG TAB.RAP.DR PO ×2 (09:51→16:35)
[2017-08-03] MEDS: CARVEDILOL 12.5 MG TABLET. PO ×2 (09:51→16:35)
[2017-08-03 11:56] LABS: POC GLUCOSE 115 mg/dL (70-99)
[2017-08-03] MEDS: VANCOMYCIN 1.25 GM in IV DEXTROSE 5 %-0.2 % NACL 250 ML IV (12:33)
[2017-08-03] MEDS: VANCOMYCIN PER PHARMACY MC (13:41)
[2017-08-03 18:16] LABS: POC GLUCOSE 108 mg/dL (70-99)
[2017-08-03] MEDS: TERAZOSIN 1 MG CAPSULE. PO (22:01)
[2017-08-03] MEDS: LINEZOLID 600 MG TABLET PO (22:01)
[2017-08-03 23:33] LABS: POC GLUCOSE 150 mg/dL (70-99)
[2017-08-04] MEDS: PIPERACILLIN/TAZOBACTAM 3.375 GM in IV NORMAL SALINE 100ML 100 ML IV ×4 (04:36→23:49)
[2017-08-04] MEDS: methylPREDNISolone SOD SUCC PF 40 MG/ML VIAL. IV (05:01)
[2017-08-04 05:06] LABS: HEMATOCRIT 28.4 % (39.0-53.0); HEMOGLOBIN 9.2 g/dL (13.0-17.5); MEAN CORPUSCULAR HEMOGLOBIN 25 pg (25-35); MEAN CORPUSCULAR HGB CONC 32 g/dL (31-37); MEAN CORPUSCULAR VOLUME 78 fL (79-100); PLATELET COUNT 511 x10^3/uL (140-400); RED BLOOD COUNT 3.65 x10^6/uL (4.30-5.70); RED CELL DISTRIBUTION WIDTH 19.2 % (11.5-14.5); WHITE BLOOD COUNT 10.7 x10^3/uL (4.0-11.0)
[2017-08-04 05:18] LABS: ANION GAP 8 (6-14); BLOOD UREA NITROGEN 15 mg/dL (8-26); CALCIUM 8.2 mg/dL (8.5-10.1); CARBON DIOXIDE 29 mmol/L (21-32); CHLORIDE 102 mmol/L (98-107); CREATININE 0.6 mg/dL (0.7-1.3); GFR 162.1; GLUCOSE 144 mg/dL (70-99); POTASSIUM 3.8 mmol/L (3.5-5.1); SODIUM 139 mmol/L (136-145)
[2017-08-04] MEDS: IPRATRPIUM/ALBUTEROL 0.5/2.5MG 3 ML NEBU. NEB ×4 (07:05→19:20)
[2017-08-04] MEDS: BUDESONIDE 0.5 MG/2 ML NEBU. NEB ×2 (07:05→19:22)
[2017-08-04] MEDS: INSULIN ASPART 300 UNITS/3 ML INSULN.PEN SQ ×3 (08:00→17:00)
[2017-08-04 08:11] LABS: POC GLUCOSE 127 mg/dL (70-99)
[2017-08-04] MEDS: ASPIRIN ENTERIC COATED 81 MG TABLET.DR. PO (08:44)
[2017-08-04] MEDS: MULTIVITAMINS,THERAPEUTIC 5 ML ORAL LIQUID. PEG (08:44)
[2017-08-04] MEDS: LINEZOLID 600 MG TABLET PO (08:45)
[2017-08-04] MEDS: ENOXAPARIN 40 MG/0.4 ML SYRINGE. SQ (08:45)
[2017-08-04] MEDS: amLODIPine BESYLATE 5 MG TABLET PO (08:45)
[2017-08-04] MEDS: CARVEDILOL 12.5 MG TABLET. PO ×2 (08:46→17:59)
[2017-08-04] MEDS: ASCORBIC ACID 500 MG TABLET PO (08:46)
[2017-08-04] MEDS: LANSOPRAZOLE 30 MG TAB.RAP.DR PO ×2 (08:46→17:58)
[2017-08-04] MEDS: ACETAMINOPHEN 325 MG TABLET. PO (08:46)
[2017-08-04 11:48] LABS: POC GLUCOSE 113 mg/dL (70-99)
[2017-08-04 17:02] LABS: POC GLUCOSE 108 mg/dL (70-99)
[2017-08-04] MEDS: TERAZOSIN 1 MG CAPSULE. PO (20:54)
[2017-08-04 23:58] LABS: POC GLUCOSE 112 mg/dL (70-99)
[2017-08-05 05:05] LABS: MEAN CORPUSCULAR HEMOGLOBIN 25 pg (25-35); MEAN CORPUSCULAR HGB CONC 31 g/dL (31-37); MEAN CORPUSCULAR VOLUME 80 fL (79-100); PLATELET COUNT 474 x10^3/uL (140-400); RED BLOOD COUNT 3.65 x10^6/uL (4.30-5.70); RED CELL DISTRIBUTION WIDTH 19.2 % (11.5-14.5)
[2017-08-05 05:27] LABS: POC GLUCOSE 112 mg/dL (70-99)
[2017-08-05 05:28] LABS: ANION GAP 6 (6-14); BLOOD UREA NITROGEN 13 mg/dL (8-26); CALCIUM 8.2 mg/dL (8.5-10.1); CARBON DIOXIDE 30 mmol/L (21-32); CHLORIDE 102 mmol/L (98-107); CREATININE 0.6 mg/dL (0.7-1.3); GFR 162.1; GLUCOSE 116 mg/dL (70-99); POTASSIUM 3.6 mmol/L (3.5-5.1); SODIUM 138 mmol/L (136-145)
[2017-08-05] MEDS: PIPERACILLIN/TAZOBACTAM 3.375 GM in IV NORMAL SALINE 100ML 100 ML IV ×2 (05:30→12:53)
[2017-08-05] MEDS: INSULIN ASPART 300 UNITS/3 ML INSULN.PEN SQ ×3 (08:00→17:00)
[2017-08-05] MEDS: BUDESONIDE 0.5 MG/2 ML NEBU. NEB ×2 (08:01→19:19)
[2017-08-05] MEDS: IPRATRPIUM/ALBUTEROL 0.5/2.5MG 3 ML NEBU. NEB ×4 (08:01→19:19)
[2017-08-05] MEDS: amLODIPine BESYLATE 5 MG TABLET PO (09:28)
[2017-08-05] MEDS: LANSOPRAZOLE 30 MG TAB.RAP.DR PO ×2 (09:29→17:36)
[2017-08-05] MEDS: MULTIVITAMINS,THERAPEUTIC 5 ML ORAL LIQUID. PEG (09:29)
[2017-08-05] MEDS: CARVEDILOL 12.5 MG TABLET. PO ×2 (09:29→17:36)
[2017-08-05] MEDS: ENOXAPARIN 40 MG/0.4 ML SYRINGE. SQ (09:29)
[2017-08-05] MEDS: ASCORBIC ACID 500 MG TABLET PO (09:29)
[2017-08-05] MEDS: ASPIRIN ENTERIC COATED 81 MG TABLET.DR. PO (09:29)
[2017-08-05] MEDS: predniSONE 20 MG TABLET PO (09:29)
[2017-08-05 11:38] LABS: POC GLUCOSE 163 mg/dL (70-99)
[2017-08-05 17:03] LABS: POC GLUCOSE 154 mg/dL (70-99)
[2017-08-05] MEDS: PIPERACILLIN/TAZOBACTAM 3.375 GM in IV NORMAL SALINE 50ML 50 ML IV ×2 (17:39→23:46)
[2017-08-05] MEDS: LINEZOLID 600 MG TABLET PO (21:58)
[2017-08-05] MEDS: LACTOBACILLUS RHAMNOSUS GG 1 CAPSULE. PO (21:59)
[2017-08-05] MEDS: TERAZOSIN 1 MG CAPSULE. PO (21:59)
[2017-08-06] MEDS: PIPERACILLIN/TAZOBACTAM 3.375 GM in IV NORMAL SALINE 50ML 50 ML IV ×3 (05:06→17:36)
[2017-08-06 05:31] LABS: POC GLUCOSE 107 mg/dL (70-99)
[2017-08-06] MEDS: INSULIN ASPART 300 UNITS/3 ML INSULN.PEN SQ ×3 (08:00→17:00)
[2017-08-06] MEDS: BUDESONIDE 0.5 MG/2 ML NEBU. NEB ×2 (08:03→19:48)
[2017-08-06] MEDS: IPRATRPIUM/ALBUTEROL 0.5/2.5MG 3 ML NEBU. NEB ×4 (08:03→19:48)
[2017-08-06] MEDS: amLODIPine BESYLATE 5 MG TABLET PO (09:40)
[2017-08-06] MEDS: CARVEDILOL 12.5 MG TABLET. PO ×2 (09:40→17:35)
[2017-08-06] MEDS: ASPIRIN ENTERIC COATED 81 MG TABLET.DR. PO (09:41)
[2017-08-06] MEDS: ASCORBIC ACID 500 MG TABLET PO (09:41)
[2017-08-06] MEDS: SENNOSIDES 8.6 MG TABLET PO (09:41)
[2017-08-06] MEDS: LANSOPRAZOLE 30 MG TAB.RAP.DR PO ×2 (09:41→17:35)
[2017-08-06] MEDS: LACTOBACILLUS RHAMNOSUS GG 1 CAPSULE. PO ×2 (09:41→20:38)
[2017-08-06] MEDS: predniSONE 20 MG TABLET PO (09:42)
[2017-08-06] MEDS: MULTIVITAMINS,THERAPEUTIC 5 ML ORAL LIQUID. PEG (09:42)
[2017-08-06] MEDS: LINEZOLID 600 MG TABLET PO ×2 (09:43→20:33)
[2017-08-06] MEDS: ENOXAPARIN 40 MG/0.4 ML SYRINGE. SQ (09:43)
[2017-08-06] MEDS: SCOPOLAMINE 1.5MG PATCH. TD (09:43)
[2017-08-06 11:25] LABS: POC GLUCOSE 102 mg/dL (70-99)
[2017-08-06 17:08] LABS: POC GLUCOSE 160 mg/dL (70-99)
[2017-08-06] MEDS: TERAZOSIN 1 MG CAPSULE. PO ×2 (20:36→20:37)
[2017-08-06 23:07] LABS: POC GLUCOSE 131 mg/dL (70-99)
[2017-08-07] MEDS: PIPERACILLIN/TAZOBACTAM 3.375 GM in IV NORMAL SALINE 50ML 50 ML IV ×4 (00:09→16:54)
[2017-08-07 05:16] LABS: POC GLUCOSE 101 mg/dL (70-99)
[2017-08-07] MEDS: LANSOPRAZOLE 30 MG TAB.RAP.DR PO ×2 (05:39→08:29)
[2017-08-07 06:07] LABS: ALBUMIN 1.9 g/dL (3.4-5.0); ALBUMIN/GLOBULIN RATIO 0.5 (1.0-1.7); ALK PHOS 63 U/L (46-116); ALT (SGPT) 31 U/L (16-63); ANION GAP 8 (6-14); AST (SGOT) 18 U/L (15-37); BLOOD UREA NITROGEN 14 mg/dL (8-26); BUN/CREATININE RATIO 23 (6-20); CALCIUM 8.3 mg/dL (8.5-10.1); CARBON DIOXIDE 30 mmol/L (21-32); CHLORIDE 102 mmol/L (98-107); CREATININE 0.6 mg/dL (0.7-1.3); GFR 162.1; GLUCOSE 107 mg/dL (70-99); POTASSIUM 3.4 mmol/L (3.5-5.1); SODIUM 140 mmol/L (136-145); TOTAL BILIRUBIN 0.3 mg/dL (0.2-1.0); TOTAL PROTEIN 5.7 g/dL (6.4-8.2)
[2017-08-07 06:19] LABS: HEMATOCRIT 28.9 % (39.0-53.0); HEMOGLOBIN 9.1 g/dL (13.0-17.5); MEAN CORPUSCULAR HEMOGLOBIN 25 pg (25-35); MEAN CORPUSCULAR HGB CONC 32 g/dL (31-37); MEAN CORPUSCULAR VOLUME 79 fL (79-100); PLATELET COUNT 523 x10^3/uL (140-400); RED BLOOD COUNT 3.65 x10^6/uL (4.30-5.70); RED CELL DISTRIBUTION WIDTH 19.9 % (11.5-14.5); WHITE BLOOD COUNT 11.4 x10^3/uL (4.0-11.0)
[2017-08-07] MEDS: INSULIN ASPART 300 UNITS/3 ML INSULN.PEN SQ ×3 (07:19→17:00)
[2017-08-07] MEDS: BUDESONIDE 0.5 MG/2 ML NEBU. NEB ×2 (08:24→19:45)
[2017-08-07] MEDS: IPRATRPIUM/ALBUTEROL 0.5/2.5MG 3 ML NEBU. NEB ×4 (08:24→19:45)
[2017-08-07] MEDS: MULTIVITAMINS,THERAPEUTIC 5 ML ORAL LIQUID. PEG (08:28)
[2017-08-07] MEDS: LINEZOLID 600 MG TABLET PO ×2 (08:29→22:00)
[2017-08-07] MEDS: ASCORBIC ACID 500 MG TABLET PO (08:29)
[2017-08-07] MEDS: SENNOSIDES 8.6 MG TABLET PO (08:29)
[2017-08-07] MEDS: ASPIRIN ENTERIC COATED 81 MG TABLET.DR. PO (08:29)
[2017-08-07] MEDS: ENOXAPARIN 40 MG/0.4 ML SYRINGE. SQ (08:29)
[2017-08-07] MEDS: predniSONE 20 MG TABLET PO (08:29)
[2017-08-07] MEDS: LACTOBACILLUS RHAMNOSUS GG 1 CAPSULE. PO ×2 (08:29→22:00)
[2017-08-07] MEDS: amLODIPine BESYLATE 5 MG TABLET PO (08:30)
[2017-08-07] MEDS: CARVEDILOL 12.5 MG TABLET. PO ×2 (08:30→16:54)
[2017-08-07 10:56] LABS: POC GLUCOSE 114 mg/dL (70-99)
[2017-08-07] MEDS: POTASSIUM CHLORIDE 20 MEQ/15 ML ORAL LIQUID. PEG ×2 (13:18→22:00)
[2017-08-07] MEDS ORDERED: POTASSIUM CHLORIDE 20 MEQ TABLET.ER. PO (14:00)
[2017-08-07] MEDS: levETIRAcetam 750 MG in IV DEXTROSE 5% 100 ML IV (14:40)
[2017-08-07 17:35] LABS: BASO % 0 % (0-3); EOS % 0 % (0-3); HEMOGLOBIN 9.1 g/dL (13.0-17.5); LYMPH # 1.1 x10^3/uL (1.0-4.8); LYMPH % 8 % (24-48); MEAN CORPUSCULAR HEMOGLOBIN 26 pg (25-35); MEAN CORPUSCULAR HGB CONC 32 g/dL (31-37); MEAN CORPUSCULAR VOLUME 79 fL (79-100); MONO # 0.5 x10^3/uL (0.0-1.1); MONO % 4 % (0-9); NEUT # 11.1 x10^3uL (1.8-7.7); NEUT % 88 % (31-73); PLATELET COUNT 489 x10^3/uL (140-400); RED BLOOD COUNT 3.56 x10^6/uL (4.30-5.70); WHITE BLOOD COUNT 12.7 x10^3/uL (4.0-11.0)
[2017-08-07 17:37] LABS: ADD MAN DIFF? YES
[2017-08-07 17:46] LABS: INR 1.2 (0.8-1.1); PARTIAL THROMBOPLASTIN TIME 30 SEC (24-38); PROTHROMBIN TIME PATIENT 14.4 SEC (11.7-14.0)
[2017-08-07 17:53] LABS: ANION GAP 5 (6-14); BLOOD UREA NITROGEN 16 mg/dL (8-26); BUN/CREATININE RATIO 27 (6-20); CALCIUM 8.4 mg/dL (8.5-10.1); CARBON DIOXIDE 30 mmol/L (21-32); CHLORIDE 103 mmol/L (98-107); CREATININE 0.6 mg/dL (0.7-1.3); GFR 162.1; GLUCOSE 149 mg/dL (70-99); POTASSIUM 4.2 mmol/L (3.5-5.1); SODIUM 138 mmol/L (136-145)
[2017-08-07 18:00] LABS: ALBUMIN 1.9 g/dL (3.4-5.0); ALBUMIN/GLOBULIN RATIO 0.5 (1.0-1.7); ALK PHOS 61 U/L (46-116); ALT (SGPT) 33 U/L (16-63); AST (SGOT) 17 U/L (15-37); TOTAL BILIRUBIN 0.3 mg/dL (0.2-1.0); TOTAL PROTEIN 5.9 g/dL (6.4-8.2)
[2017-08-07 18:06] LABS: % LYMPHS 7 % (24-48); % MONOS 11 % (0-10); % SEGS 82 % (35-66); ANISOCYTOSIS SLIGHT; HYPOCHROMIA SLIGHT; PLT ESTIMATE INCREASED (ADEQUATE); POIKILOCYTOSIS SLIGHT; POLYCHROMASIA SLIGHT
[2017-08-07] MEDS: TERAZOSIN 1 MG CAPSULE. PO (22:00)
[2017-08-08] MEDS: PIPERACILLIN/TAZOBACTAM 3.375 GM in IV NORMAL SALINE 50ML 50 ML IV ×5 (00:02→22:59)
[2017-08-08 01:53] LABS: POC GLUCOSE 119 mg/dL (70-99)
[2017-08-08] MEDS: BUDESONIDE 0.5 MG/2 ML NEBU. NEB ×2 (07:27→19:31)
[2017-08-08] MEDS: IPRATRPIUM/ALBUTEROL 0.5/2.5MG 3 ML NEBU. NEB ×4 (07:27→19:31)
[2017-08-08] MEDS: INSULIN ASPART 300 UNITS/3 ML INSULN.PEN SQ ×3 (08:02→17:00)
[2017-08-08 08:31] LABS: ADD MAN DIFF? NO
[2017-08-08 08:35] LABS: BASO % 0 % (0-3); EOS # 0.1 x10^3/uL (0.0-0.7); EOS % 1 % (0-3); HEMATOCRIT 25.1 % (39.0-53.0); LYMPH # 2.8 x10^3/uL (1.0-4.8); LYMPH % 24 % (24-48); MEAN CORPUSCULAR HEMOGLOBIN 25 pg (25-35); MEAN CORPUSCULAR HGB CONC 32 g/dL (31-37); MEAN CORPUSCULAR VOLUME 79 fL (79-100); MONO % 9 % (0-9); NEUT % 67 % (31-73); PLATELET COUNT 466 x10^3/uL (140-400); RED BLOOD COUNT 3.17 x10^6/uL (4.30-5.70); RED CELL DISTRIBUTION WIDTH 19.8 % (11.5-14.5); WHITE BLOOD COUNT 11.9 x10^3/uL (4.0-11.0)
[2017-08-08 09:00] LABS: ANION GAP 5 (6-14); BLOOD UREA NITROGEN 21 mg/dL (8-26); CALCIUM 8.5 mg/dL (8.5-10.1); CARBON DIOXIDE 31 mmol/L (21-32); CHLORIDE 103 mmol/L (98-107); CREATININE 0.6 mg/dL (0.7-1.3); GFR 162.1; GLUCOSE 113 mg/dL (70-99); POTASSIUM 3.7 mmol/L (3.5-5.1); SODIUM 139 mmol/L (136-145)
[2017-08-08] MEDS: ASPIRIN ENTERIC COATED 81 MG TABLET.DR. PO (09:00)
[2017-08-08] MEDS: LANSOPRAZOLE 30 MG TAB.RAP.DR PO ×2 (09:45→16:19)
[2017-08-08] MEDS: CARVEDILOL 12.5 MG TABLET. PO ×2 (09:46→16:20)
[2017-08-08] MEDS: POTASSIUM CHLORIDE 20 MEQ/15 ML ORAL LIQUID. PEG ×3 (09:47→21:46)
[2017-08-08] MEDS: MULTIVITAMINS,THERAPEUTIC 5 ML ORAL LIQUID. PEG (09:48)
[2017-08-08] MEDS: LACTOBACILLUS RHAMNOSUS GG 1 CAPSULE. PO ×2 (09:48→21:46)
[2017-08-08] MEDS: amLODIPine BESYLATE 5 MG TABLET PO (09:50)
[2017-08-08] MEDS: ASCORBIC ACID 500 MG TABLET PO (09:50)
[2017-08-08] MEDS: predniSONE 20 MG TABLET PO (09:50)
[2017-08-08] MEDS: LINEZOLID 600 MG TABLET PO ×2 (09:52→21:46)
[2017-08-08 11:08] LABS: POC GLUCOSE 115 mg/dL (70-99)
[2017-08-08 17:01] LABS: POC GLUCOSE 143 mg/dL (70-99)
[2017-08-08] MEDS: TERAZOSIN 1 MG CAPSULE. PO (21:46)
[2017-08-08 23:21] LABS: POC GLUCOSE 109 mg/dL (70-99)
[2017-08-09] MEDS: PIPERACILLIN/TAZOBACTAM 3.375 GM in IV NORMAL SALINE 50ML 50 ML IV ×4 (05:03→23:29)
[2017-08-09 05:06] LABS: HEMATOCRIT 25.6 % (39.0-53.0); HEMOGLOBIN 8.1 g/dL (13.0-17.5); MEAN CORPUSCULAR HEMOGLOBIN 26 pg (25-35); MEAN CORPUSCULAR HGB CONC 32 g/dL (31-37); MEAN CORPUSCULAR VOLUME 81 fL (79-100); PLATELET COUNT 406 x10^3/uL (140-400); RED BLOOD COUNT 3.17 x10^6/uL (4.30-5.70); RED CELL DISTRIBUTION WIDTH 20.3 % (11.5-14.5); WHITE BLOOD COUNT 12.1 x10^3/uL (4.0-11.0)
[2017-08-09 05:18] LABS: POC GLUCOSE 93 mg/dL (70-99)
[2017-08-09 05:28] LABS: ANION GAP 7 (6-14); BLOOD UREA NITROGEN 16 mg/dL (8-26); CALCIUM 8.5 mg/dL (8.5-10.1); CARBON DIOXIDE 28 mmol/L (21-32); CHLORIDE 104 mmol/L (98-107); CREATININE 0.6 mg/dL (0.7-1.3); GFR 162.1; GLUCOSE 98 mg/dL (70-99); POTASSIUM 4.1 mmol/L (3.5-5.1); SODIUM 139 mmol/L (136-145)
[2017-08-09] MEDS: BUDESONIDE 0.5 MG/2 ML NEBU. NEB ×2 (07:59→16:20)
[2017-08-09] MEDS: IPRATRPIUM/ALBUTEROL 0.5/2.5MG 3 ML NEBU. NEB ×4 (07:59→20:00)
[2017-08-09] MEDS: INSULIN ASPART 300 UNITS/3 ML INSULN.PEN SQ ×3 (08:00→17:42)
[2017-08-09] MEDS: LANSOPRAZOLE 30 MG TAB.RAP.DR PO ×2 (08:20→17:41)
[2017-08-09] MEDS: CARVEDILOL 12.5 MG TABLET. PO ×2 (08:21→17:09)
[2017-08-09] MEDS: MULTIVITAMINS,THERAPEUTIC 5 ML ORAL LIQUID. PEG (08:23)
[2017-08-09] MEDS: POTASSIUM CHLORIDE 20 MEQ/15 ML ORAL LIQUID. PEG ×3 (08:23→19:54)
[2017-08-09] MEDS: LACTOBACILLUS RHAMNOSUS GG 1 CAPSULE. PO ×2 (08:23→19:54)
[2017-08-09] MEDS: ASPIRIN ENTERIC COATED 81 MG TABLET.DR. PO (08:25)
[2017-08-09] MEDS: amLODIPine BESYLATE 5 MG TABLET PO (08:25)
[2017-08-09] MEDS: ASCORBIC ACID 500 MG TABLET PO (08:26)
[2017-08-09] MEDS: predniSONE 20 MG TABLET PO (08:26)
[2017-08-09] MEDS: LINEZOLID 600 MG TABLET PO ×2 (08:26→19:53)
[2017-08-09] MEDS: SCOPOLAMINE 1.5MG PATCH. TD (08:27)
[2017-08-09] MEDS: ACETAMINOPHEN 325 MG TABLET. PO ×2 (08:28→19:54)
[2017-08-09 10:46] LABS: POC GLUCOSE 122 mg/dL (70-99)
[2017-08-09 17:20] LABS: POC GLUCOSE 128 mg/dL (70-99)
[2017-08-09] MEDS: TERAZOSIN 1 MG CAPSULE. PO (19:53)
[2017-08-10] MEDS: PIPERACILLIN/TAZOBACTAM 3.375 GM in IV NORMAL SALINE 50ML 50 ML IV (04:56)
[2017-08-10 05:35] LABS: ADD MAN DIFF? NO
[2017-08-10 05:55] LABS: POC GLUCOSE 96 mg/dL (70-99)
[2017-08-10 06:02] LABS: BASO % 0 % (0-3); EOS # 0.1 x10^3/uL (0.0-0.7); EOS % 1 % (0-3); HEMATOCRIT 30.2 % (39.0-53.0); HEMOGLOBIN 9.2 g/dL (13.0-17.5); LYMPH # 2.4 x10^3/uL (1.0-4.8); LYMPH % 21 % (24-48); MEAN CORPUSCULAR HEMOGLOBIN 25 pg (25-35); MEAN CORPUSCULAR HGB CONC 31 g/dL (31-37); MEAN CORPUSCULAR VOLUME 82 fL (79-100); MONO # 0.9 x10^3/uL (0.0-1.1); MONO % 9 % (0-9); NEUT # 7.7 x10^3uL (1.8-7.7); NEUT % 69 % (31-73); PLATELET COUNT 434 x10^3/uL (140-400); RED BLOOD COUNT 3.69 x10^6/uL (4.30-5.70); RED CELL DISTRIBUTION WIDTH 21.3 % (11.5-14.5); WHITE BLOOD COUNT 11.1 x10^3/uL (4.0-11.0)
[2017-08-10 06:33] LABS: ANION GAP 7 (6-14); BLOOD UREA NITROGEN 13 mg/dL (8-26); CALCIUM 8.9 mg/dL (8.5-10.1); CARBON DIOXIDE 29 mmol/L (21-32); CHLORIDE 104 mmol/L (98-107); CREATININE 0.7 mg/dL (0.7-1.3); GFR 135.7; GLUCOSE 100 mg/dL (70-99); SODIUM 140 mmol/L (136-145)
[2017-08-10] MEDS: IPRATRPIUM/ALBUTEROL 0.5/2.5MG 3 ML NEBU. NEB ×4 (07:55→19:27)
[2017-08-10] MEDS: BUDESONIDE 0.5 MG/2 ML NEBU. NEB ×2 (07:55→19:27)
[2017-08-10] MEDS: INSULIN ASPART 300 UNITS/3 ML INSULN.PEN SQ ×3 (08:00→17:00)
[2017-08-10] MEDS: POTASSIUM CHLORIDE 20 MEQ/15 ML ORAL LIQUID. PEG ×3 (08:17→22:22)
[2017-08-10] MEDS: MULTIVITAMINS,THERAPEUTIC 5 ML ORAL LIQUID. PEG (08:17)
[2017-08-10] MEDS: amLODIPine BESYLATE 5 MG TABLET PO (08:18)
[2017-08-10] MEDS: ASCORBIC ACID 500 MG TABLET PO (08:18)
[2017-08-10] MEDS: LINEZOLID 600 MG TABLET PO (08:18)
[2017-08-10] MEDS: LANSOPRAZOLE 30 MG TAB.RAP.DR PO ×2 (08:18→15:13)
[2017-08-10] MEDS: ASPIRIN ENTERIC COATED 81 MG TABLET.DR. PO (08:18)
[2017-08-10] MEDS: LACTOBACILLUS RHAMNOSUS GG 1 CAPSULE. PO ×2 (08:18→22:21)
[2017-08-10] MEDS: CARVEDILOL 12.5 MG TABLET. PO ×2 (08:19→17:12)
[2017-08-10] MEDS: predniSONE 20 MG TABLET PO (08:19)
[2017-08-10] MEDS: AMOXICILLIN/K CLAV 875/125MG TABLET. PO ×2 (10:46→22:21)
[2017-08-10 10:57] LABS: POC GLUCOSE 109 mg/dL (70-99)
[2017-08-10 17:02] LABS: POC GLUCOSE 140 mg/dL (70-99)
[2017-08-10] MEDS: TERAZOSIN 1 MG CAPSULE. PO (22:21)
[2017-08-10 23:09] LABS: POC GLUCOSE 79 mg/dL (70-99)
[2017-08-11] MEDS: BUDESONIDE 0.5 MG/2 ML NEBU. NEB ×2 (07:26→20:00)
[2017-08-11] MEDS: IPRATRPIUM/ALBUTEROL 0.5/2.5MG 3 ML NEBU. NEB ×4 (07:26→20:00)
[2017-08-11 07:49] LABS: POC GLUCOSE 116 mg/dL (70-99)
[2017-08-11] MEDS: INSULIN ASPART 300 UNITS/3 ML INSULN.PEN SQ ×3 (07:51→17:00)
[2017-08-11] MEDS: AMOXICILLIN/K CLAV 875/125MG TABLET. PO ×2 (08:30→21:39)
[2017-08-11] MEDS: POTASSIUM CHLORIDE 20 MEQ/15 ML ORAL LIQUID. PEG ×3 (08:30→21:39)
[2017-08-11] MEDS: LACTOBACILLUS RHAMNOSUS GG 1 CAPSULE. PO ×2 (08:30→21:39)
[2017-08-11] MEDS: predniSONE 20 MG TABLET PO (08:30)
[2017-08-11] MEDS: MULTIVITAMINS,THERAPEUTIC 5 ML ORAL LIQUID. PEG (08:30)
[2017-08-11] MEDS: ASCORBIC ACID 500 MG TABLET PO (08:30)
[2017-08-11] MEDS: LANSOPRAZOLE 30 MG TAB.RAP.DR PO ×2 (08:30→15:19)
[2017-08-11] MEDS: ASPIRIN ENTERIC COATED 81 MG TABLET.DR. PO (08:31)
[2017-08-11] MEDS: CARVEDILOL 12.5 MG TABLET. PO ×2 (08:31→15:20)
[2017-08-11] MEDS: amLODIPine BESYLATE 5 MG TABLET PO (08:31)
[2017-08-11 11:21] LABS: POC GLUCOSE 130 mg/dL (70-99)
[2017-08-11] MEDS: SENNOSIDES 8.6 MG TABLET PO ×2 (15:17→21:39)
[2017-08-11 16:53] LABS: POC GLUCOSE 138 mg/dL (70-99)
[2017-08-11] MEDS: TERAZOSIN 1 MG CAPSULE. PO (21:38)
[2017-08-11 23:28] LABS: POC GLUCOSE 109 mg/dL (70-99)
[2017-08-12 05:31] LABS: POC GLUCOSE 97 mg/dL (70-99)
[2017-08-12] MEDS: INSULIN ASPART 300 UNITS/3 ML INSULN.PEN SQ ×2 (08:00→11:11)
[2017-08-12] MEDS: IPRATRPIUM/ALBUTEROL 0.5/2.5MG 3 ML NEBU. NEB ×2 (08:16→12:04)
[2017-08-12] MEDS: BUDESONIDE 0.5 MG/2 ML NEBU. NEB (08:18)
[2017-08-12] MEDS: LANSOPRAZOLE 30 MG TAB.RAP.DR PO (10:18)
[2017-08-12] MEDS: CARVEDILOL 12.5 MG TABLET. PO (10:26)
[2017-08-12] MEDS: POTASSIUM CHLORIDE 20 MEQ/15 ML ORAL LIQUID. PEG (10:27)
[2017-08-12] MEDS: LACTOBACILLUS RHAMNOSUS GG 1 CAPSULE. PO (10:28)
[2017-08-12] MEDS: MULTIVITAMINS,THERAPEUTIC 5 ML ORAL LIQUID. PEG (10:28)
[2017-08-12] MEDS: AMOXICILLIN/K CLAV 875/125MG TABLET. PO (10:28)
[2017-08-12] MEDS: amLODIPine BESYLATE 5 MG TABLET PO (10:29)
[2017-08-12] MEDS: ASPIRIN ENTERIC COATED 81 MG TABLET.DR. PO (10:29)
[2017-08-12] MEDS: predniSONE 20 MG TABLET PO (10:29)
[2017-08-12] MEDS: SENNOSIDES 8.6 MG TABLET PO (10:30)
[2017-08-12] MEDS: SCOPOLAMINE 1.5MG PATCH. TD (10:31)
[2017-08-12] MEDS: ASCORBIC ACID 500 MG TABLET PO (10:31)
[2017-08-12 11:39] LABS: POC GLUCOSE 104 mg/dL (70-99)
== END 2017-08-12 12:16 | disposition hospice, home (50) | DRG 871 ==
LOC: 1 WEST ICU 07-31 17:30 → 5 NORTH 08-02 17:41 → ER 08:37 → 5 SOUTH 09:44
PROC: 0BJ08ZZ Inspection of Tracheobronchial Tree, Via Natural or Artificial Opening Endoscopic (ICD-10-PCS; principal; 2017-08-01)
DX: A41.9 Sepsis, unspecified organism (principal); J96.21 Acute and chronic respiratory failure with hypoxia; E43 Unspecified severe protein-calorie malnutrition; G92 Toxic encephalopathy; I69.354 Hemiplegia and hemiparesis following cerebral infarction affecting left non-dominant side; R13.10 Dysphagia, unspecified; J95.03 Malfunction of tracheostomy stoma; F03.90 Unspecified dementia, unspecified severity, without behavioral disturbance, psychotic disturbance, mood disturbance, and anxiety; J44.0 Chronic obstructive pulmonary disease with (acute) lower respiratory infection; J44.1 Chronic obstructive pulmonary disease with (acute) exacerbation; N39.0 Urinary tract infection, site not specified; D64.9 Anemia, unspecified; E10.9 Type 1 diabetes mellitus without complications; E78.00 Pure hypercholesterolemia, unspecified; B96.89 Other specified bacterial agents as the cause of diseases classified elsewhere; Z68.21 Body mass index [BMI] 21.0-21.9, adult; E78.5 Hyperlipidemia, unspecified; E87.6 Hypokalemia; I10 Essential (primary) hypertension; K21.9 Gastro-esophageal reflux disease without esophagitis; Z87.891 Personal history of nicotine dependence; Z93.1 Gastrostomy status; F12.90 Cannabis use, unspecified, uncomplicated; Z16.11 Resistance to penicillins; Z51.5 Encounter for palliative care
CPT/HCPCS: 31622; 31720; 36415; 36600; 51702; 70450; 71045; 73620; 80048; 80053; 80202; 81001; 82805; 82962; 83605; 84484; 85007; 85025; 85027; 85610; 85651; 85730; 87040; 87086; 87205; 87324; 87641; 87804; 87804-59; 93005; 93970; 94640; 94760; 96365; 96368; 97110-GO; 97110-GP; 97162-GP; 97165-GO; 99291-25; J1100; J1650; J1815; J1953; J2020; J2060; J2405; J2543; J2704; J2920; J3370; J7030; J7512; J7613; J7620; J7626